=== PATIENT | male | born 2005 | race Asian ===

== ENCOUNTER 2024-02-17 13:25 | Inpatient (IN) ==
[2024-02-17 14:55] LABS: ABS Eosinophils 0.1 10^3/uL (0.0-0.5); ABS Lymphocytes 1.7 10^3/uL (1.0-4.8); ABS Monocytes 0.4 10^3/uL (0.0-1.1); ABS Neutrophils 4.6 10^3/uL (1.5-7.6); Eosinophil % 0.7 %; Hematocrit 45.4 % (38-53); Hemoglobin 15.6 g/dL (13.2-16.3); Lymphocyte % 25.2 %; Mean Corpuscular Hemoglobin 30.1 pg (27-33); Mean Corpuscular Hgb Conc 34.3 g/dL (31-36); Mean Corpuscular Volume 87.6 fL (80-97); Mean Platelet Volume 9.7 fL (7.5-11.2); Nucleated Red Blood Cells % 0.1 %/100WBC (0.0-0.8); Platelet Count 164 10^3/uL (150-450); Red Blood Count 5.18 10^6/uL (4.06-5.63); Red Cell Distribution Width 13.1 % (12-17); White Blood Count 6.8 10^3/uL (3.6-10.2)
[2024-02-17 14:56] LABS: Urine Appearance Clear; Urine Bilirubin Negative (Negative); Urine Blood Negative (Negative); Urine Color Light-Yellow; Urine Glucose Negative (Negative); Urine Ketones Negative (Negative); Urine Nitrite Negative (Negative); Urine Protein Negative (Negative); Urine Specific Gravity 1.016 (1.002-1.030); Urine Urobilinogen Negative (Negative)
[2024-02-17 15:12] LABS: Urine Benzodiazepine Screen None Detected (None Detect); Urine Cannabinoids Screen None Detected (None Detect); Urine Opiates Screen None Detected (None Detect)
[2024-02-17 15:28] LABS: ALT 49 U/L (7-52); AST 30 U/L (13-39); Acetaminophen < 15 mcg/mL; Albumin 4.8 g/dL (3.2-5.2); Albumin/Globulin Ratio 1.7 (1-3); Alcohol, S < 13 mg/dL (<13); Alkaline Phosphatase 62 U/L (35-149); Anion Gap 7 mmol/L (2-16); Blood Urea Nitrogen 14 mg/dL (6-24); CO2 Carbon Dioxide 28 mmol/L (22-32); Calcium 9.9 mg/dL (8.6-10.3); Chloride 102 mmol/L (101-111); Creatinine, Serum 0.97 mg/dL (0.67-1.17); Globulin 2.8 g/dL (2-4); Glucose 110 mg/dL (70-100); Potassium 4.1 mmol/L (3.5-5.0); Salicylate < 2.50 mg/dL (<30); Sodium 137 mmol/L (135-145); Total Bilirubin 0.6 mg/dL (0.2-1.0); Total Protein 7.6 g/dL (6.4-8.9); eGFR CKD-EPI 114.6 (>60)
[2024-02-17 15:42] LABS: TSH Ultra Thyroid Stim Horm 0.93 mcIU/mL (0.34-5.60)
[2024-02-17] MEDS ORDERED: Al Hydrox/Mg Hydrox/Simet LIQ 30 ML UDC PO PRN (21:12)
[2024-02-18 08:37] LABS: HDL Cholesterol 52.7 mg/dL
[2024-02-18] MEDS ORDERED: Influenza Vaccine *TRI* 2024-25* 0.5 ML SYRINGE IM ONE (09:00)
[2024-02-18] MEDS: Vitamin THERAPEUTIC TAB PO SCH (09:15)
[2024-02-18] MEDS: Amphetamine/Dextroam ER 10(NF) 10 mg CAP.ER PO SCH (14:35)
[2024-02-18] MEDS: Amphetamine MIXED SALT 10mgTAB PO ONE (14:39)
[2024-02-19] MEDS ORDERED: DEXTROAM PO SCH (09:00)
[2024-02-19] MEDS ORDERED: AMPHETAMINE PO SCH (09:00)
[2024-02-19] MEDS: DEXTROAMPHETAMINE 10 MG PO SCH (09:48)
[2024-02-19] MEDS: DEXTROAMPHETAMINE 15 MG PO SCH (09:49)
[2024-02-19] MEDS: Amphetamine/Dextroam ER 10(NF) 10 mg CAP.ER PO SCH (10:24)
[2024-02-20 08:48] VITALS: BP 122/82
== END 2024-02-20 11:20 | disposition home or self-care (01) | DRG 882 ==
LOC: ED 13:25 → EDHOLD 21:12 → BSU 21:40
PROVIDERS: ADMIT Psychiatry & Neurology Psychiatry; ATTEND Psychiatry & Neurology Psychiatry